=== PATIENT | female | born 1945 | race Caucasian/White ===

== ENCOUNTER 2017-02-27 09:18 | Emergency (ER) | payer MEDICARE, OTHER ==
[~2017-02-27] VITALS: Ht 170.2 cm; Wt 105.0 kg
[~2017-02-27 09:18] MED LIST: FEXO180 PO; LEVA500T33 PO; LISI10TA PO; TUSSSUS PO
[2017-02-27 09:21] VITALS: BP 188/88; PULSE 78; RESP 16; TEMP 98; O2SAT 92
[2017-02-27] MEDS ORDERED: PROM6.254 PO (09:36)
[2017-02-27] MEDS ORDERED: ALBU1AER5 INH (09:36)
[2017-02-27] MEDS ORDERED: AZIT250T3 PO (09:36)
[2017-02-27] MEDS ORDERED: LISI20TA PO (09:36)
[2017-02-27] MEDS ORDERED: PROM6.256 PO (09:36)
[2017-02-27] MEDS ORDERED: PRED10PA PO ×2 (09:36→10:47)
--- NOTE | 2017-02-27 09:37 | PD ---
HPI Chief Complaint: Cold / Flu Symptoms Time Seen by Provider: 09:33 Travel History International Travel<30 days: No Contact w/Intl Traveler<30days: No Traveled to known affect area: No History of Present Illness HPI Patient presents with approximately one week of cough. Denies nausea vomiting diarrhea or fever. She is a smoker with COPD. Recently traveling. [email or web address], Z-Jonnathan and cough suppressant without resolution of her symptoms. Denies any new chest pain shortness of breath urinary or bowel symptoms. PFSH Past Medical History Diabetes: No Diminished Hearing: No Hypertension: Yes Immunizations Current: Yes (FLU 2006; [id number]) Social History Alcohol Use: No Tobacco Use: Yes (1 PPD) Substance Use: No Allergies-Medications (Allergen,Severity, Reaction): Coded Allergies: No Known Allergies (Verified Adverse Reaction, Unknown, 02/27/17) Reported Meds & Prescriptions Reported Meds & Active Scripts Active Levaquin (Levofloxacin) 500 Mg Tablet 500 Mg PO DAILY 7 Days Prednisone (21) 10 mg tab Dose Pack (Prednisone) 10 Mg Pack 10 Mg PO DIRECTED Cheratussin AC Liq (Guaifenesin-Codeine Liq) 100-10 Mg/5 Ml Syrp 10 Ml PO Q4H PRN Do not exceed 6 doses/24 hrs. Duoneb (Ipratropium-Albuterol Neb) 0.5-2.5 Mg/3 Ml Neb 1 Nebule INH Q4HR NEB PRN Reported Azithromycin 250 Mg Tab 250 Mg PO DIRECTED Take 2 tabs (500 mg) on day 1 then 1 tab daily x 4 days. Promethazine-Codeine Liq 6.25-10 Mg/5 Ml Syrp 10 Ml PO Q6H PRN Proair Respiclick Inh (Albuterol Sulfate) 90 Mcg/Act Aerp 2 Puff INH Q4HR PRN Prednisone (21) 10 mg tab Dose Pack (Prednisone) 10 Mg Pack 10 Mg PO DIRECTED Lisinopril-Hctz 20-12.5 Mg Tab 1 Tab PO DAILY Review of Systems General / Constitutional: No: Fever Eyes: No: Visual changes HENT: No: Headaches Cardiovascular: No: Chest Pain or Discomfort Respiratory: Positive: Cough, Wheezing, No: Shortness of Breath Gastrointestinal: No: Abdominal Pain Genitourinary: No: Dysuria Musculoskeletal: No: Pain Skin: No Rash Neurologic: No: Weakness Psychiatric: No: Depression Endocrine: No: Polydipsia Hematologic/Lymphatic: No: Easy Bruising Physical Exam Narrative GENERAL: Well-nourished, well-developed patient. SKIN: Focused skin assessment warm/dry. HEAD: Normocephalic. EYES: No scleral icterus. No injection or drainage. NECK: Supple, trachea midline. No JVD or lymphadenopathy. CARDIOVASCULAR: Regular rate and rhythm without murmurs, gallops, or rubs. RESPIRATORY: Decreased breath sounds in all hendrix right lower lobe worse with end expiratory wheeze. No accessory muscle use. GASTROINTESTINAL: Abdomen soft, non-tender, nondistended. MUSCULOSKELETAL: No cyanosis, or edema. BACK: Nontender without obvious deformity. No CVA tenderness. Data Data Last Documented VS Vital Signs Date Time Temp Pulse Resp B/P (MAP) Pulse Ox O2 Delivery O2 Flow Rate FiO2 02/27/17 10:04 64 20 93 Room Air 02/27/17 09:21 98.0 188/88 (121) Orders Orders Complete Blood Count With Diff (02/27/17 09:33) Basic Metabolic Panel (Bmp) (02/27/17 09:33) Iv Access Insert/Monitor (02/27/17 09:33) Ecg Monitoring (02/27/17 09:33) Oximetry (02/27/17 09:33) Oxygen Administration (02/27/17 09:33) Chest, Single Ap (02/27/17 09:33) Sodium Chloride 0.9% Flush (Ns Flush) (02/27/17 09:45) Methylprednisolone So Succ Inj (Solumedr (02/27/17 09:45) Albuterol-Ipratropium Neb (Duoneb Neb) (02/27/17 09:45) Ceftriaxone Inj (Rocephin Inj) (02/27/17 09:45) Labs Laboratory Tests Test 02/27/17 10:14 White Blood Count 8.9 TH/MM3 Red Blood Count 5.08 MIL/MM3 Hemoglobin 14.5 GM/DL Hematocrit 45.0 % Mean Corpuscular Volume 88.5 FL Mean Corpuscular Hemoglobin 28.5 PG Mean Corpuscular Hemoglobin Concent 32.2 % Red Cell Distribution Width 12.8 % Platelet Count 312 TH/MM3 Mean Platelet Volume 7.1 FL Neutrophils (%) (Auto) 67.8 % Lymphocytes (%) (Auto) 14.6 % Monocytes (%) (Auto) 11.6 % Eosinophils (%) (Auto) 2.0 % Basophils (%) (Auto) 4.0 % Neutrophils # (Auto) 6.0 TH/MM3 Lymphocytes # (Auto) 1.3 TH/MM3 Monocytes # (Auto) 1.0 TH/MM3 Eosinophils # (Auto) 0.2 TH/MM3 Basophils # (Auto) 0.4 TH/MM3 CBC Comment DIFF FINAL Differential Comment Blood Urea Nitrogen 14 MG/DL Creatinine 0.71 MG/DL Random Glucose 93 MG/DL Calcium Level 8.6 MG/DL Sodium Level 141 MEQ/L Potassium Level 4.7 MEQ/L Chloride Level 105 MEQ/L Carbon Dioxide Level 28.2 MEQ/L Anion Gap 8 MEQ/L Estimat Glomerular Filtration Rate 81 ML/MIN MDM Medical Decision Making Medical Screen Exam Complete: Yes Emergency Medical Condition: Yes Differential Diagnosis COPD exacerbation, pneumonia, bronchitis Narrative Course Assessment and plan discussed with and patient at bedside. Breath sounds much improved after DuoNeb's. CBC within normal limits, renal function is good. Last 72 hours Impressions Chest X-Ray 02/27/17 0933 Signed Impressions: Service Date/Time: Monday, February 27, 2017 09:45 - CONCLUSION: No evidence of acute cardiopulmonary disease. Harrison Anguiano MD Diagnosis Primary Impression: COPD exacerbation Patient Instructions: General Instructions Additional Instructions: Encouraged smoking cessation. Prescription for nebulizer provided. Repeat oral anabiotic's and steroids. Cough suppressant as needed. Follow-up with PCP. Return to the emergency room with any onset of new symptoms. Med/Other Pt SpecificInfo: Prescription(s) given Scripts Levofloxacin (Levaquin) 500 Mg Tablet 500 MG PO DAILY for Infection for 7 Days, #7 TAB 0 Refills Prov: Quentin Junior MD 02/27/17 Prednisone (21) 10 mg tab Dose Pack (Prednisone (21) 10 mg tab Dose Pack) 10 Mg Pack 10 MG PO DIRECTED for Inflammation, #1 DSPK 0 Refills Prov: Quentin Junior MD 02/27/17 Guaifenesin-Codeine Liq (Cheratussin AC Liq) 100-10 Mg/5 Ml Syrp 10 ML PO Q4H Y for COUGH AND COLD SYMPTOMS, #120 ML 0 Refills Do not exceed 6 doses/24 hrs. Prov: Quentin Junior MD 02/27/17 Ipratropium-Albuterol Neb (Duoneb) 0.5-2.5 Mg/3 Ml Neb 1 NEBULE INH Q4HR NEB Y for wheeze, #20 NEBULE 0 Refills Prov: Quentin Junior MD 02/27/17 Disposition: 01 DISCHARGE HOME Condition: Good Quentin Junior MD Feb 27, 2017 09:37
[2017-02-27] MEDS: RESP: ALBUTEROL 2.5 MG/IPRATROPIUM 0.5 MG NEB (SCH) INH ×2 (09:42→09:43)
[2017-02-27] MEDS ORDERED: cefTRIAXone INJ 1,000 MG in SODIUM CHLORIDE 0.9% INJ 100 ML IV ONE (09:45)
[2017-02-27] MEDS ORDERED: SODIUM CHLORIDE 0.9% FLUSH 10 ML FLUSH IVF PRN (09:45)
[2017-02-27] MEDS ORDERED: methylPREDNISolone SOD SUCC 125 MG/2 ML VIAL IV PUSH ONE (09:45)
[2017-02-27 09:56] VITALS: O2SAT 93
--- NOTE | 2017-02-27 10:02 | RADRPT ---
EXAM DATE/TIME: 02/27/2017 09:45 [facility] COMPARISON: No previous studies available for comparison. INDICATIONS : Short of breath, cough MEDICAL HISTORY : None. SURGICAL HISTORY : None. ENCOUNTER: Initial ACUITY: 4 - 6 days PAIN SCORE: 0/10 LOCATION: Bilateral chest FINDINGS: A single view of the chest demonstrates the lungs to be symmetrically aerated without evidence of mas s, infiltrate or effusion. The cardiomediastinal contours are unremarkable. Osseous structures are intact. CONCLUSION: No evidence of acute cardiopulmonary disease. Harrison Anguiano MD on February 27, 2017 at 10:00 Board Certified Radiologist. This report was verified electronically.
[2017-02-27 10:04] VITALS: PULSE 64; RESP 20; O2SAT 93
[2017-02-27 10:23] LABS: BASOPHIL # 0.4 TH/MM3 (0-0.2); EOSINOPHIL # 0.2 TH/MM3 (0-0.4); HEMO FLAGS DIFF FINAL; LYMPH % 14.6 % (9.0-44.0); LYMPHOCYTE # 1.3 TH/MM3 (1.0-4.8); MEAN CELL VOLUME 88.5 FL (80.0-100.0); MEAN CORPUSCULAR HEMOGLOBIN 28.5 PG (27.0-34.0); MEAN CORPUSCULAR HGB CONC 32.2 % (32.0-36.0); MONO % 11.6 % (0.0-8.0); NEUT % 67.8 % (16.0-70.0); PLATELET COUNT 312 TH/MM3 (150-450); RED BLOOD COUNT 5.08 MIL/MM3 (4.00-5.30); RED CELL DISTRIBUTION WIDTH 12.8 % (11.6-17.2); WHITE BLOOD COUNT 8.9 TH/MM3 (4.0-11.0)
[2017-02-27 10:30] LABS: POTASSIUM 4.7 MEQ/L (3.5-5.1)
[2017-02-27 10:33] LABS: BICARBONATE 28.2 MEQ/L (21.0-32.0)
[2017-02-27] MEDS ORDERED: IPRASOL INH (10:47)
[2017-02-27] MEDS ORDERED: LEVA500T33 PO (10:47)
[2017-02-27] MEDS ORDERED: CHERSYP2 PO (10:47)
[2017-02-27 11:00] VITALS: BP 133/84
== END 2017-02-27 11:02 | disposition home or self-care (01) ==
LOC: PHED 09:18
DX: J44.1 Chronic obstructive pulmonary disease with (acute) exacerbation (principal); I10 Essential (primary) hypertension; F17.210 Nicotine dependence, cigarettes, uncomplicated
CPT/HCPCS: 71010; 80048; 85025; 94640; 94664; 96365; 96375; 99285; J0696; J2930